=== PATIENT | male | born 1990 | race Caucasian/White ===

== ENCOUNTER 2016-12-01 18:36 | Emergency (ER) | payer OTHER, BC ==
[~2016-12-01] VITALS: Ht 175.3 cm; Wt 118.0 kg
[2016-12-01] MEDS ORDERED: MOTRIN800 MG PO (19:47)
[2016-12-01] MEDS ORDERED: FLEXERIL10 MG PO (19:47)
[2016-12-01 19:55] VITALS: BP 126/101
== END 2016-12-01 19:56 | disposition home or self-care (01) ==
LOC: EME 18:36
DX: M62.838 Other muscle spasm (principal); V49.40XA Driver injured in collision with unspecified motor vehicles in traffic accident, initial encounter; M54.2 Cervicalgia; M54.6 Pain in thoracic spine
CPT/HCPCS: 72040; 99281; 99283